=== PATIENT | female | born 1975 | race Caucasian/White ===

== ENCOUNTER 2022-06-04 15:03 | Outpatient (CLI) | payer OTHER, SELFPAY ==
[2022-06-04 22:25] LABS: Albumin* 4.5 g/dL (3.3-5.0); Chloride* 96 mmol/L (96-114); Sodium* 134 mmol/L (135-149)
[2022-06-04 22:26] LABS: Potassium* 4.7 mmol/L (3.6-5.1)
[2022-06-04 22:27] LABS: Creatinine* 0.7 mg/dL (0.5-1.5); Estimated Glomerular Filt Rate 107 ml/min
[2022-06-04 22:28] LABS: Alanine Aminotransferase* 215 U/L (4-35); Alkaline Phosphatase* 85 U/L (40-150); Aspartate Amino Transferase* 237 U/L (12-35); Bilirubin Direct* 0.3 mg/dL (0.0-0.5); Bilirubin Total* 1.5 mg/dL (0.1-1.5); Blood Urea Nitrogen* 15 mg/dL (5-24); Calcium* 9.9 mg/dL (8.4-10.6); Carbon Dioxide* 30 mmol/L (20-32); Glucose* 87 mg/dL (60-115); Total Protein* 7.9 g/dL (6.0-8.3)
== END 2022-06-04 15:04 | disposition home or self-care (01) ==
PROVIDERS: PCP Emergency Medicine; Visit Provider Emergency Medicine
DX: I10 Essential (primary) hypertension (principal); E80.4 Gilbert syndrome; F10.10 Alcohol abuse, uncomplicated; E66.9 Obesity, unspecified; E55.9 Vitamin D deficiency, unspecified; E03.9 Hypothyroidism, unspecified
CPT/HCPCS: 80048; 80076

== ENCOUNTER 2022-06-12 20:42 | Outpatient (CLI) | payer OTHER, SELFPAY ==
[2022-06-22 16:00] LABS: Hepatitis B Core Antibody, IgM Negative; Hepatitis B Surface Antigen Negative
== END 2022-06-12 20:43 | disposition home or self-care (01) ==
PROVIDERS: PCP Emergency Medicine; Visit Provider Emergency Medicine
DX: R74.01 Elevation of levels of liver transaminase levels (principal)
CPT/HCPCS: 80074

== ENCOUNTER 2022-12-31 16:09 | Outpatient (CLI) | payer OTHER, SELFPAY | END 2022-12-31 16:10 | disposition home or self-care (01) | LOC: LKVREF 16:10 | PROVIDERS: PCP Emergency Medicine; Visit Provider Emergency Medicine | DX: I10 Essential (primary) hypertension (principal); R74.01 Elevation of levels of liver transaminase levels | CPT/HCPCS: 80053 ==

== ENCOUNTER 2023-02-24 08:20 | Outpatient (CLI) | payer OTHER, SELFPAY ==
--- NOTE | 2023-02-24 09:15 | CRLHL7_ITS ---
For Patients: As a result of the Century Cures Act, medical imaging exams and procedure reports are released immediately into your electronic medical record. You may view this report before your referring provider. If you have questions, please contact your health care provider. INDICATION: ELEVATED LFTS COMPARISON: 04/17/2016 TECHNIQUE: Real time sullivan scale imaging and color Doppler analysis was performed of the right upper quadrant. FINDINGS: The patient`s liver is of normal size and has diffusely increased echogenicity. There is a normal appearance of the hepatic IVC and proximal abdominal aorta. There is no evidence of ascites. The gallbladder is of normal size and there is no evidence of intraluminal stones or sludge. The gallbladder wall measures 2.8 mm in thickness. The common bile duct is of normal size and measures 5.4 mm in diameter at the level of the kristie hepatis. The pancreas appears normal. There is no evidence of a stone or hydronephrosis within the right kidney. The right kidney measures 10.4 cm in length. IMPRESSION: Moderate diffuse hepatic steatosis. Remainder unremarkable. Dictated by Naresh Castellanos MD @ 02/24/2023 9:08:51 AM (Electronically Signed)
== END 2023-02-24 08:21 | disposition home or self-care (01) ==
LOC: US 08:21
PROVIDERS: PCP Emergency Medicine; Visit Provider Emergency Medicine
DX: R74.01 Elevation of levels of liver transaminase levels (principal); K76.0 Fatty (change of) liver, not elsewhere classified
CPT/HCPCS: 76705

== ENCOUNTER 2023-05-12 11:22 | Outpatient (CLI) | payer OTHER, SELFPAY ==
--- NOTE | 2023-05-12 11:30 | CRLHL7_ITS ---
For Patients: As a result of the Cures Act, medical imaging exams and procedure reports are released immediately into your electronic medical record. You may view this report before your referring provider. If you have questions, please contact your health care provider. BILATERAL SCREENING MAMMOGRAM WITH COMPUTER-AIDED DETECTION AND TOMOSYNTHESIS TECHNIQUE: CC and MLO views were obtained. These mammographic images have been obtained using full-field digital technique. These mammographic images were interpreted with the benefit of computer-aided detection. Breast tomosynthesis was used in this interpretation. COMPARISON FILM: 07/07/21, 02/27/19, 11/01/17. FINDINGS: The breasts are almost entirely fatty. IMPRESSION: There is no radiographic evidence for malignancy. ASSESSMENT: BI-RADS Category 1: Negative RECOMMENDATION: Routine screening mammogram in 1 year. A lay language report of this examination will be provided to the patient. MANSI SAEZ M.D. Diagnostic/Nuclear Medicine Radiologist [email or web address] Transcribed: 2:[address]/Dictated by: Mansi Saez MD @ 05/12/2023 11:57:00 AM (Electronically Signed)
== END 2023-05-12 11:23 | disposition home or self-care (01) ==
LOC: MAMMO 11:23
PROVIDERS: PCP Emergency Medicine; Visit Provider Emergency Medicine
DX: Z12.31 Encounter for screening mammogram for malignant neoplasm of breast (principal)
CPT/HCPCS: 77063; 77067

== ENCOUNTER 2023-08-19 09:16 | Outpatient (CLI) | payer OTHER, SELFPAY | END 2023-08-19 09:17 | disposition home or self-care (01) | LOC: NFLDREF 08-20 11:18 | PROVIDERS: PCP Emergency Medicine; Referring Provider Emergency Medicine; Visit Provider Emergency Medicine | DX: Z13.1 Encounter for screening for diabetes mellitus (principal); Z23 Encounter for immunization; I10 Essential (primary) hypertension; E03.9 Hypothyroidism, unspecified; E55.9 Vitamin D deficiency, unspecified; R74.01 Elevation of levels of liver transaminase levels | CPT/HCPCS: 80053; 80061; 82306; 84443 ==

== ENCOUNTER 2025-01-02 08:23 | Outpatient (CLI) | payer OTHER, SELFPAY ==
--- NOTE | 2025-01-02 10:33 | P.ANES_ITS ---
Anesthesia Charges Start Date/Time Anesthesia Start Date: 01/02/25 Anesthesia Start Time: 09:41 Stop Date/Time Anesthesia Stop Date: 01/02/25 Anesthesia Stop Time: 10:31 Coding CPT Codes CPT Codes: ANES LWR INTST NDSC NOS - [id number] ([id number]) P3 - PATIENT W/SEVERE SYS DISEASE, QK - GENOMICS SCIENTIST 2-4 CNCRNT ANES PROC, QX - LEAD TECHNOLOGIST IN CYTOGENETICS SVC W/ MD MED DIRECTION
--- NOTE | 2025-01-02 10:33 | W.ANESCHARGE ---
Anesthesia Charges Start Date/Time Anesthesia Start Date: 01/02/25 Anesthesia Start Time: 09:41 Stop Date/Time Anesthesia Stop Date: 01/02/25 Anesthesia Stop Time: 10:31 Coding CPT Codes CPT Codes: ANES LWR INTST NDSC NOS - [id number] ([id number]) P3 - PATIENT W/SEVERE SYS DISEASE, QK - SWEET DOUGH MIXER 2-4 CNCRNT ANES PROC, QX - ARTS ADMINISTRATOR OR MANAGER SVC W/ MD MED DIRECTION
--- NOTE | 2025-01-02 10:41 | P.ANES_ITS ---
Anesthesia Charges Start Date/Time Anesthesia Start Date: 01/02/25 Anesthesia Start Time: 09:41 Stop Date/Time Anesthesia Stop Date: 01/02/25 Anesthesia Stop Time: 10:31 Coding CPT Codes CPT Codes: ANES LWR INTST NDSC NOS - [id number] ([id number]) QK - SLURRY CONTROL TENDER 2-4 CNCRNT ANES PROC, QX - MESSAGE AND DELIVERY SERVICE PRICER SVC W/ MED DIRECTION, P3 - PATIENT W/SEVERE SYS DISEASE
--- NOTE | 2025-01-02 10:41 | W.ANESCHARGE ---
Anesthesia Charges Start Date/Time Anesthesia Start Date: 01/02/25 Anesthesia Start Time: 09:41 Stop Date/Time Anesthesia Stop Date: 01/02/25 Anesthesia Stop Time: 10:31 Coding CPT Codes CPT Codes: ANES LWR INTST NDSC NOS - [id number] ([id number]) QK - APPLICATIONS SYSTEM ANALYST 2-4 CNCRNT ANES PROC, QX - FIELD SERVICE TECH SVC W/ MED DIRECTION, P3 - PATIENT W/SEVERE SYS DISEASE
== END 2025-01-02 08:24 | disposition home or self-care (01) ==
LOC: OP CLINIC 08:24
PROVIDERS: PCP Emergency Medicine; Visit Provider Surgery
DX: Z12.11 Encounter for screening for malignant neoplasm of colon (principal); Z86.0100 Personal history of colon polyps, unspecified; D12.2 Benign neoplasm of ascending colon; D12.4 Benign neoplasm of descending colon; D12.5 Benign neoplasm of sigmoid colon; D12.3 Benign neoplasm of transverse colon
CPT/HCPCS: 00811; 00812; 45385; 88305; J2704

== ENCOUNTER 2025-05-03 13:52 | Outpatient (CLI) | payer OTHER, SELFPAY ==
[2025-05-08 09:42] LABS: Pap Test Screened Manually Done
[2025-05-09 01:15] LABS: HPV Source Cervix
== END 2025-05-03 13:53 | disposition home or self-care (01) ==
PROVIDERS: PCP Physician Assistant Medical; Visit Provider Physician Assistant Medical
DX: Z00.00 Encounter for general adult medical examination without abnormal findings (principal); E03.9 Hypothyroidism, unspecified; K76.0 Fatty (change of) liver, not elsewhere classified; R74.01 Elevation of levels of liver transaminase levels
CPT/HCPCS: 80053; 82607; 84443; 87624; 87625; 88141; 88142; 88175

== ENCOUNTER 2025-06-01 10:31 | Outpatient (CLI) | payer OTHER, SELFPAY ==
--- NOTE | 2025-06-01 10:45 | CRLHL7_ITS ---
For Patients: As a result of the Century Cures Act, medical imaging exams and procedure reports are released immediately into your electronic medical record. You may view this report before your referring provider. If you have questions, please contact your health care provider. INDICATION: NONINFLAMMATORY DISORDERS OF VAGINA COMPARISON: None. TECHNIQUE: 2D sullivan-scale and color Doppler images were acquired of the pelvis using a transabdominal and transvaginal approach. Transvaginal imaging performed to better visualize the endometrial stripe and ovaries. FINDINGS: Sonographic images demonstrate a normal size and smooth outer contour of the uterus. Uterus measures 7.4 cm in length by 3.2 cm in AP diameter by 4.3 cm in transverse dimension. The myometrium has a normal uniform echotexture. The endometrial lining measures 9 mm in composite thickness. The ovaries are not visualized due to overlying bowel gas. There are no suspicious fluid collections within the cul-de-sac. IMPRESSION: Endometrial thickness 9 millimeters. No uterine fibroid. Nonvisualization of the ovaries due to bowel gas. Dictated by Naresh Castellanos MD @ 06/01/2025 2:33:53 PM (Electronically Signed)
== END 2025-06-01 10:32 | disposition home or self-care (01) ==
LOC: US 10:31
PROVIDERS: PCP Physician Assistant Medical; Visit Provider Obstetrics & Gynecology
DX: N89.8 Other specified noninflammatory disorders of vagina (principal); R93.89 Abnormal findings on diagnostic imaging of other specified body structures
CPT/HCPCS: 76830; 76856